=== PATIENT | female | born 1995 | race American Indian/Alaskan Native ===

== ENCOUNTER 2018-09-17 22:34 | Outpatient (CLI) | payer OTHER ==
[2018-09-19] MEDS ORDERED: ZYRTEC10 M3 PO (11:16)
[2018-09-19] MEDS ORDERED: AYR SALINE50 M2 (11:16)
[2018-09-19] MEDS ORDERED: FIORICET (11:17)
== END 2018-09-18 15:54 | disposition home or self-care (01) ==
LOC: OBS/DEL 22:34
DX: O26.892 Other specified pregnancy related conditions, second trimester (principal); J32.8 Other chronic sinusitis; J30.89 Other allergic rhinitis

== ENCOUNTER 2018-09-19 10:16 | Emergency (ER) | payer OTHER ==
[~2018-09-19] VITALS: Ht 165.1 cm; Wt 90.7 kg
[2018-09-19] MEDS ORDERED: ZYRTEC10 M3 PO (11:16)
[2018-09-19] MEDS ORDERED: AYR SALINE50 M2 (11:16)
[2018-09-19] MEDS ORDERED: FIORICET (11:17)
== END 2018-09-19 13:41 | disposition home or self-care (01) ==
LOC: ER 10:16
DX: J32.8 Other chronic sinusitis (principal); G43.909 Migraine, unspecified, not intractable, without status migrainosus

== ENCOUNTER 2018-09-23 21:10 | Outpatient (CLI) | payer OTHER | END 2018-09-24 22:16 | disposition home or self-care (01) | LOC: OBS/DEL 21:10 | DX: O26.892 Other specified pregnancy related conditions, second trimester (principal); R10.2 Pelvic and perineal pain; Z34.82 Encounter for supervision of other normal pregnancy, second trimester ==

== ENCOUNTER → 2018-09-23 | Emergency (ER) | payer OTHER ==
[~2018-09-23] MED LIST: AYR SALINE50 M2; FIORICET; ZYRTEC10 M3 PO
== END | disposition left against medical advice (07) ==
LOC: ER 20:11
DX: Z53.20 Procedure and treatment not carried out because of patient's decision for unspecified reasons (principal)

== ENCOUNTER 2018-11-04 01:05 | Outpatient (CLI) | payer OTHER | END 2018-11-04 20:46 | disposition home or self-care (01) | LOC: OBS/DEL 01:05 | DX: O16.3 Unspecified maternal hypertension, third trimester (principal); Z34.83 Encounter for supervision of other normal pregnancy, third trimester ==

== ENCOUNTER 2018-12-02 07:26 | Outpatient (CLI) | payer OTHER | END 2018-12-02 19:35 | disposition home or self-care (01) | LOC: OBS/DEL 07:26 | DX: O13.3 Gestational [pregnancy-induced] hypertension without significant proteinuria, third trimester (principal); O76 Abnormality in fetal heart rate and rhythm complicating labor and delivery; Z34.83 Encounter for supervision of other normal pregnancy, third trimester ==

== ENCOUNTER 2018-12-09 09:15 | Inpatient (IN) | payer OTHER ==
[~2018-12-09] VITALS: Ht 162.6 cm; Wt 3.2 kg
[2018-12-10] MEDS ORDERED: PNEU16DI2 (11:30)
[2018-12-10] MEDS ORDERED: LABETALOL HCL100 MG (11:31)
[2018-12-10] MEDS ORDERED: ASPIR-LOW81 MG (11:32)
[2018-12-28] MEDS ORDERED: PRENATAL CAPLE1 EAC1 PO (22:37)
== END 2019-01-01 11:21 | disposition home or self-care (01) | DRG 788 ==
LOC: O/R 09:15 → OB/GYN 12-26 09:15 → LDR 12-28 21:32 → OB/GYN 12-28 21:32 → LDR 12-29 00:45 → O/R 12-29 10:42 → OB/GYN 12-29 14:06
PROVIDERS: ADMIT Obstetrics & Gynecology
PROC: 4A1HXCZ Monitoring of Products of Conception, Cardiac Rate, External Approach (ICD-10-PCS; 2018-12-28)
PROC: 3E033VJ Introduction of Other Hormone into Peripheral Vein, Percutaneous Approach (ICD-10-PCS; 2018-12-29)
PROC: 10D00Z1 Extraction of Products of Conception, Low, Open Approach (ICD-10-PCS; principal; 2018-12-29 10:45)
DX: O82 Encounter for cesarean delivery without indication (principal); O65.4 Obstructed labor due to fetopelvic disproportion, unspecified; Z3A.40 40 weeks gestation of pregnancy; Z37.0 Single live birth

== ENCOUNTER 2018-12-28 05:55 | Outpatient (CLI) | payer OTHER ==
[~2018-12-28 05:55] MED LIST changes: +ASPIR-LOW81 MG; +LABETALOL HCL100 MG; +PNEU16DI2
[2018-12-28] MEDS ORDERED: PRENATAL CAPLE1 EAC1 PO (22:37)
== END 2018-12-28 21:36 | disposition still patient (30) ==
LOC: OBS/DEL 05:55
DX: O44.03 Complete placenta previa NOS or without hemorrhage, third trimester (principal); Z34.83 Encounter for supervision of other normal pregnancy, third trimester

== ENCOUNTER 2023-10-15 15:29 | Emergency (ER) | payer OTHER ==
[~2023-10-15] VITALS: Ht 162.6 cm; Wt 101.6 kg
[~2023-10-15 15:29] MED LIST changes: +PRENATAL CAPLE1 EAC1 PO
== END 2023-10-15 18:38 | disposition home or self-care (01) ==
LOC: ER 15:29
DX: O98.511 Other viral diseases complicating pregnancy, first trimester (principal); O20.9 Hemorrhage in early pregnancy, unspecified; U07.1 COVID-19; Z3A.13 13 weeks gestation of pregnancy; Z91.040 Latex allergy status; Z91.013 Allergy to seafood

== ENCOUNTER 2024-02-25 02:38 | Inpatient (IN) | payer OTHER ==
[~2024-02-25] VITALS: Ht 165.1 cm; Wt 103.9 kg
[2024-02-25 01:13] VITALS: BP 134/78
[2024-02-25] MEDS ORDERED: SODIUM CHLORIDE 0.45 % 1,000 ML IV SCH (02:45)
[2024-02-25] MEDS ORDERED: LABETALOL HCL 200 MG TABLET PO SCH (03:01)
[2024-02-25 03:04] LABS: URINE APPEARANCE Cloudy; URINE BILIRRUBIN Small (NEGATIVE); URINE BLOOD Negative; URINE COLOR Dark Yellow; URINE GLUCOSE Negative (NEGATIVE); URINE LEUKOCYTE Small; URINE NITRATE Negative; URINE PROTEIN 30 (NEGATIVE)
[2024-02-25 03:09] LABS: URINE EPITHELIAL CELLS 163.1 uL (0.0-38.8); URINE RBC 7.9 uL (0.0-20.8); URINE WBC 88.1 uL (0.0-23.2)
[2024-02-25 03:18] LABS: HEMATOCRIT 32.2 % (36.0-45.00); MEAN CORPUSCULAR HGB CONC 31.9 g/dl (32.0-36.0); PLATELET COUNT 368 K/uL (150-450); RED BLOOD COUNT 4.23 M/uL (4.00-6.00); RED CELL DISTRIBUTION WIDTH 22.9 % (11.5-14.5)
[2024-02-25 03:21] LABS: HEMOGLOBIN 10.2 g/dL (12.0-15.00); MEAN CORPUSCULAR HEMOGLOBIN 24.1 pg (27.00-32.0)
[2024-02-25] MEDS ORDERED: ECOTRIN81 MG PO (03:44)
[2024-02-25 03:59] LABS: ALBUMIN 2.8 gm/dL (3.4-5.0); BILIRUBIN TOTAL 0.44 mg/dL (0.3-1.2); CALCIUM 8.9 mg/dL (8.5-10.1); CREATININE SERUM 0.48 mg/dL (0.55-1.02); GFR 151.85; GLOBULINA 3.9 G/DL (2.4-3.5); POTASSIUM 3.87 mEq/L (3.5-5.1); TOTAL PROTEIN 6.7 gm/dL (6.4-8.2); URIC ACID 2.8 mg/dL (2.5-7.5)
[2024-02-25 04:41] VITALS: BP 153/79
[2024-02-25 05:07] LABS: URINE BACTERIA > 9821.5 uL (0.0-1933); URINE CAST 1.06 uL (0.0-1.40); URINE KETONE 80 (NEGATIVE)
[2024-02-25 05:08] LABS: URINE CRYSTALS FEW /HPF
[2024-02-25 08:54] VITALS: BP 136/77
[2024-02-25] MEDS ORDERED: BETAMETHASONE ACETATE,SOD PHOS 30 MG/5 ML ML IM SCH (10:53)
[2024-02-25] MEDS ORDERED: SOD FERRIC GLUC COMPLX/SUCROSE 125 MG in 0.9 % SODIUM CHLORIDE 100 ML IV SCH (11:33)
[2024-02-25 13:05] VITALS: BP 130/82
[2024-02-25 16:15] VITALS: BP 134/89
[2024-02-25 20:35] VITALS: BP 119/78
[2024-02-26] VITALS (8 sets, daily range): BP systolic 111–138; BP diastolic 68–89; O2SAT 97–100
[2024-02-26 04:02] LABS: URINE PROT QUANT 24 HR 348.48 MG/24HR (42-225); URINE PROT QUANT 24HR 26.3 MG/DL
[2024-02-26 08:25] LABS: ALT/SGPT 370 U/L (12-78); AST/SGOT 142 U/L (15-37)
[2024-02-26] MEDS ORDERED: NIFEDIPINE 30 MG TAB.SA.OSM PO SCH (09:00)
[2024-02-26] MEDS ORDERED: BETAMETHASONE ACETATE,SOD PHOS 30 MG/5 ML ML IM NR (13:45)
[2024-02-27 01:20] VITALS: BP 130/80
[2024-02-27 07:04] LABS: MEAN CELL VOLUME 77.6 fL (80.00-100.00); MEAN CORPUSCULAR HEMOGLOBIN 25.2 pg (27.00-32.0); MEAN CORPUSCULAR HGB CONC 32.4 g/dl (32.0-36.0); PLATELET COUNT 344 K/uL (150-450); RED BLOOD COUNT 3.99 M/uL (4.00-6.00); RED CELL DISTRIBUTION WIDTH 23.5 % (11.5-14.5)
[2024-02-27 07:31] LABS: ALT/SGPT 381 U/L (12-78); AST/SGOT 129 U/L (15-37)
[2024-02-27 09:39] VITALS: BP 137/85
[2024-02-27 13:00] VITALS: BP 143/85
[2024-02-28] VITALS: BP 139/80
[2024-02-28 00:48] LABS: ALT/SGPT 333 U/L (12-78); AST/SGOT 96 U/L (15-37)
[2024-02-28 10:52] VITALS: BP 140/87; BP 150/92
[2024-02-28 13:20] LABS: URINE APPEARANCE Clear; URINE BILIRRUBIN Negative (NEGATIVE); URINE BLOOD Negative; URINE COLOR Yellow; URINE GLUCOSE Negative (NEGATIVE); URINE KETONE 15 (NEGATIVE); URINE LEUKOCYTE Trace; URINE NITRATE Negative; URINE PROTEIN Negative (NEGATIVE); URINE UROBILINOGEN 0.2 E.U./dl
[2024-02-28 13:23] LABS: URINE BACTERIA 1254.9 uL (0.0-1933); URINE EPITHELIAL CELLS 44.6 uL (0.0-38.8); URINE WBC 41.2 uL (0.0-23.2)
[2024-02-28 13:24] LABS: URINE CAST 0.15 uL (0.0-1.40); URINE RBC 0.3 uL (0.0-20.8)
[2024-02-28 17:05] VITALS: BP 130/74
[2024-02-29 01:00] VITALS: BP 141/87
[2024-02-29 08:00] VITALS: BP 144/89
[2024-02-29 10:27] LABS: ALT/SGPT 284 U/L (12-78); AST/SGOT 93 U/L (15-37)
[2024-02-29 17:19] VITALS: BP 140/90
[2024-02-29 21:10] VITALS: BP 130/85
[2024-03-01] VITALS: BP 133/72
[2024-03-01 06:47] LABS: PH,URINE 6.5 (5.0-8.0); URINE APPEARANCE Clear; URINE BILIRRUBIN Negative (NEGATIVE); URINE BLOOD Negative; URINE COLOR Yellow; URINE GLUCOSE Negative (NEGATIVE); URINE KETONE 15 (NEGATIVE); URINE LEUKOCYTE Trace; URINE NITRATE Negative; URINE PROTEIN Negative (NEGATIVE)
[2024-03-01 06:48] LABS: URINE BACTERIA 1234.6 uL (0.0-1933); URINE EPITHELIAL CELLS 45.6 uL (0.0-38.8); URINE WBC 40.3 uL (0.0-23.2)
[2024-03-01 06:59] LABS: URINE RBC 0.6 uL (0.0-20.8)
[2024-03-01 07:17] LABS: HEMATOCRIT 34.1 % (36.0-45.00); MEAN CELL VOLUME 77.6 fL (80.00-100.00); MEAN CORPUSCULAR HGB CONC 32.2 g/dl (32.0-36.0); PLATELET COUNT 313 K/uL (150-450); RED CELL DISTRIBUTION WIDTH 24.5 % (11.5-14.5)
[2024-03-01 08:04] LABS: ALT/SGPT 262 U/L (12-78); AST/SGOT 84 U/L (15-37)
[2024-03-01 08:31] VITALS: BP 117/70
[2024-03-01] MEDS ORDERED: FERROUS SULFATE 325 MG TABLET.EC PO SCH (09:00)
[2024-03-01] MEDS ORDERED: PNV,CALCIUM 72/IRON/FOLIC ACID 1 TAB TABLET PO SCH (09:00)
[2024-03-01 16:38] VITALS: BP 132/88
== END 2024-03-01 20:11 | disposition home or self-care (01) | DRG 832 ==
LOC: OBS/DEL 02:38 → LDR 13:43 → OB/GYN 13:43 → OBS/DEL 13:43 → OB/GYN 02-26 23:14
PROVIDERS: ADMIT Obstetrics & Gynecology; ATTEND Obstetrics & Gynecology
PROC: BY4FZZZ Ultrasonography of Third Trimester, Single Fetus (ICD-10-PCS; principal; 2024-02-25)
PROC: 4A1HXCZ Monitoring of Products of Conception, Cardiac Rate, External Approach (ICD-10-PCS; 2024-02-25)
DX: O10.013 Pre-existing essential hypertension complicating pregnancy, third trimester (principal); O99.113 Other diseases of the blood and blood-forming organs and certain disorders involving the immune mechanism complicating pregnancy, third trimester; O26.843 Uterine size-date discrepancy, third trimester; O36.8130 Decreased fetal movements, third trimester, not applicable or unspecified; Z3A.31 31 weeks gestation of pregnancy; Z20.822 Contact with and (suspected) exposure to COVID-19; O99.013 Anemia complicating pregnancy, third trimester; D64.9 Anemia, unspecified; R74.01 Elevation of levels of liver transaminase levels

== ENCOUNTER 2024-03-24 08:26 | Outpatient (CLI) | payer OTHER ==
[~2024-03-24 08:26] MED LIST changes: +ECOTRIN81 MG PO
== END 2024-03-24 08:27 | disposition home or self-care (01) ==
LOC: PRENATAL 08:26
PROVIDERS: ATTEND Obstetrics & Gynecology Maternal & Fetal Medicine
DX: O26.849 Uterine size-date discrepancy, unspecified trimester (principal); O36.8199 Decreased fetal movements, unspecified trimester, other fetus; O10.019 Pre-existing essential hypertension complicating pregnancy, unspecified trimester; Z3A.36 36 weeks gestation of pregnancy

== ENCOUNTER 2024-04-06 08:56 | Inpatient (IN) | payer OTHER ==
[~2024-04-06] VITALS: Ht 162.6 cm; Wt 106.1 kg
[2024-04-06] MEDS ORDERED: NIFEDIPINE20 MG (09:24)
[2024-04-06] MEDS ORDERED: NIFEDIPINE20 MG PO (09:24)
[2024-04-06] MEDS ORDERED: SULFATO FERROSO (09:26)
[2024-04-06 09:29] LABS: PH,URINE 6.5 (5.0-8.0); URINE APPEARANCE Cloudy; URINE BILIRRUBIN Small (NEGATIVE); URINE BLOOD Negative; URINE COLOR Dark Yellow; URINE GLUCOSE Negative (NEGATIVE); URINE KETONE Trace (NEGATIVE); URINE LEUKOCYTE Small; URINE NITRATE Negative; URINE PROTEIN 30 (NEGATIVE)
[2024-04-06 09:33] LABS: URINE RBC 8.1 uL (0.0-20.8); URINE WBC 215.4 uL (0.0-23.2)
[2024-04-06 09:37] LABS: HEMATOCRIT 35.5 % (36.0-45.00); HEMOGLOBIN 11.6 g/dL (12.0-15.00); MEAN CELL VOLUME 78.6 fL (80.00-100.00); MEAN CORPUSCULAR HEMOGLOBIN 25.6 pg (27.00-32.0); MEAN CORPUSCULAR HGB CONC 32.6 g/dl (32.0-36.0); PLATELET COUNT 244 K/uL (150-450); RED BLOOD COUNT 4.52 M/uL (4.00-6.00)
[2024-04-06 09:45] LABS: URINE BACTERIA > 9821.5 uL (0.0-1933); URINE CAST 0.88 uL (0.0-1.40); URINE EPITHELIAL CELLS > 201.7 uL (0.0-38.8)
[2024-04-06 09:54] LABS: INR 0.94; PARTIAL THROMBOPLASTIN TIME 28.4 SECONDS (22.0-34.0); PROTHROMBIN TIME 10.3 SECONDS (9.0-11.5)
[2024-04-06 10:28] LABS: ALBUMIN 2.8 gm/dL (3.4-5.0); BILIRUBIN TOTAL 0.51 mg/dL (0.3-1.2); CALCIUM 9.2 mg/dL (8.5-10.1); CREATININE SERUM 0.55 mg/dL (0.55-1.02); GFR 129.78; GLOBULINA 4.2 G/DL (2.4-3.5); POTASSIUM 3.96 mEq/L (3.5-5.1)
[2024-04-06 11:33] LABS: RH NEGATIVE
[2024-04-08 08:33] VITALS: BP 117/79
[2024-04-08] MEDS ORDERED: CITRIC ACID/SODIUM CITRATE 30 ML BLIST.PACK PO ONE ×2 (12:30→12:45)
[2024-04-08] MEDS ORDERED: CEFAZOLIN SODIUM 1,000 MG VIAL ONE (12:31)
[2024-04-08] MEDS ORDERED: KETOROLAC TROMETHAMINE 60 MG VIAL IM STA (14:27)
[2024-04-08] MEDS ORDERED: OXYTOCIN 1,000 ML IV SCH (14:30)
[2024-04-08] MEDS ORDERED: PROMETHAZINE HCL 25 MG/ML AMPUL IM PRN (14:30)
[2024-04-08] MEDS ORDERED: RINGERS SOLUTION,LACTATED 1,000 ML IV SCH (14:30)
[2024-04-08] MEDS ORDERED: MEPERIDINE HCL/PF 50 MG/ML VIAL IM PRN (14:30)
[2024-04-08] MEDS ORDERED: CHLORHEXIDINE GLUCONATE 120 ML BOTTLE TOP ONE (14:30)
[2024-04-08] MEDS ORDERED: ERYTHROMYCIN BASE OPHT 1GM EACH TUBE OP ONE (15:30)
[2024-04-08] MEDS ORDERED: OXYTOCIN 20 UNITS/1000ML RL PIGGYBAG IV ONE (15:30)
[2024-04-08] MEDS ORDERED: CEFAZOLIN SODIUM 1,000 MG VIAL IV ONE (15:30)
[2024-04-08] MEDS ORDERED: KETOROLAC TROMETHAMINE 60 MG VIAL IM ONE (16:32)
[2024-04-08] MEDS ORDERED: OXYTOCIN 10 UNITS/ML VIAL ONE (16:32)
[2024-04-08 17:50] VITALS: BP 134/84
[2024-04-08 19:33] LABS: HEMATOCRIT 31.3 % (36.0-45.00); HEMOGLOBIN 10.1 g/dL (12.0-15.00); MEAN CELL VOLUME 80.2 fL (80.00-100.00); MEAN CORPUSCULAR HEMOGLOBIN 25.7 pg (27.00-32.0); MEAN CORPUSCULAR HGB CONC 32.1 g/dl (32.0-36.0); PLATELET COUNT 246 K/uL (150-450); RED BLOOD COUNT 3.91 M/uL (4.00-6.00); RED CELL DISTRIBUTION WIDTH 22.4 % (11.5-14.5)
[2024-04-08] MEDS ORDERED: CEFAZOLIN SODIUM 1,000 MG VIAL IV SCH (20:00)
[2024-04-09 00:34] VITALS: BP 140/80
[2024-04-09 04:00] VITALS: BP 135/83
[2024-04-09 08:07] VITALS: BP 133/85
[2024-04-09] MEDS ORDERED: OxyCODONE HCL/APAP UD (PERCOCET) PO PRN (09:00)
[2024-04-09] MEDS ORDERED: FF) RHO(D) IMMUNE GLOBULIN (POM) IM NR (11:30)
[2024-04-09] MEDS ORDERED: IBUprofen 600 MG TABLET PO PRN (12:15)
[2024-04-09] MEDS ORDERED: NIFEDIPINE 30 MG TAB.SA.OSM PO NR (13:00)
[2024-04-09 15:56] VITALS: BP 137/81
[2024-04-10 01:11] VITALS: BP 127/80
[2024-04-10 07:52] VITALS: BP 140/90
[2024-04-10] MEDS ORDERED: NIFEDIPINE 30 MG TAB.SA.OSM PO SCH (09:00)
[2024-04-10 16:00] VITALS: BP 138/85
[2024-04-10 20:00] VITALS: BP 125/80
[2024-04-11 00:15] VITALS: BP 135/80
[2024-04-11 04:00] VITALS: BP 124/80
[2024-04-11 08:20] VITALS: BP 129/84
== END 2024-04-11 14:28 | disposition home or self-care (01) | DRG 785 ==
LOC: OB/GYN 04-08 08:53 → O/R 04-08 13:41 → EDLOC 04-08 13:41 → OB/GYN 04-08 16:05
PROVIDERS: ADMIT Obstetrics & Gynecology; ATTEND Obstetrics & Gynecology
PROC: 0UT70ZZ Resection of Bilateral Fallopian Tubes, Open Approach (ICD-10-PCS; 2024-04-08)
PROC: 0UT10ZZ Resection of Left Ovary, Open Approach (ICD-10-PCS; 2024-04-08)
PROC: 07BC0ZZ Excision of Pelvis Lymphatic, Open Approach (ICD-10-PCS; 2024-04-08)
PROC: 0DBU0ZZ Excision of Omentum, Open Approach (ICD-10-PCS; 2024-04-08)
PROC: 4A1HXCZ Monitoring of Products of Conception, Cardiac Rate, External Approach (ICD-10-PCS; 2024-04-08)
PROC: 10D00Z1 Extraction of Products of Conception, Low, Open Approach (ICD-10-PCS; principal; 2024-04-08 12:00)
DX: O34.211 Maternal care for low transverse scar from previous cesarean delivery (principal); O34.83 Maternal care for other abnormalities of pelvic organs, third trimester; D27.1 Benign neoplasm of left ovary; Z3A.38 38 weeks gestation of pregnancy; Z37.0 Single live birth; Z30.2 Encounter for sterilization; Z20.822 Contact with and (suspected) exposure to COVID-19